=== PATIENT | male | born 1980 | race Two or more races ===

== ENCOUNTER 2016-12-06 11:46 | Emergency (ER) | payer OTHER ==
[~2016-12-06] VITALS: Ht 185.4 cm; Wt 83.5 kg
--- NOTE | 2016-12-06 12:40 | Emergency Room Report ---
History of Present Illness General Chief Complaint: Lower Extremity Injury Source: Patient Present Illness HPI 36-year-old male presents emergency department complaining of 6/10 in severity left medial knee pain that is localized x3 weeks. Patient states onset was immediately after a mechanical slip and fall. Patient reports previous history of MCL injury several years ago. Patient states pain is exacerbated upon extension of the leg. Patient has been wearing a knee brace as precaution. Patient denies instability of the joint. Patient denies swelling erythema, bruising. he states she has been taking naproxen regularly for the past 3 weeks with no relief. Patient states he does not currently have a PCP. Denies numbness tingling or loss of sensation or gross motor movements of the extremities, incontinence of bowel or bladder. Denies CP, Palpitations, LOC, AMS , dizziness, Changes in Vision, Sensation, paresthesias, or a sudden severe headache. Allergies: Coded Allergies: No Known Allergies (Unverified , 12/06/16) Patient History Past Medical History: see triage record Past Surgical History: none Pertinent Family History: none Immunizations: UTD Reviewed Nursing Documentation: PMH: Agreed, PSxH: Agreed Nursing Documentation-PMH Past Medical History: No Stated History Review of Systems All Other Systems: negative except mentioned in HPI Physical Exam Vital Signs Date Time Temp Pulse Resp B/P Pulse Ox O2 Delivery O2 Flow Rate FiO2 12/06/16 11:51 97.9 61 16 121/77 100 Room Air Sp02 EP Interpretation: reviewed, normal General Appearance: no apparent distress, alert, GCS 15, non-toxic Head: normocephalic, atraumatic Eyes: bilateral eye PERRL, bilateral eye normal inspection ENT: hearing grossly normal, normal pharynx, no angioedema, normal voice Neck: full range of motion, supple/symm/no masses Respiratory: lungs clear, normal breath sounds, speaking full sentences Cardiovascular #1: regular rate, rhythm, no edema Genitourinary: normal inspection, no CVA tenderness Musculoskeletal: back normal, gait/station normal, normal range of motion, other - pt has neoprene knee brace., tender - medial ttp to the left knee, no increased laxitiy, negative anterior and posterior drawer sign, pain with full extension, no obvious deformity. no swelling or bruising. Neurologic: alert, oriented x3, responsive, motor strength/tone normal, sensory intact, cerebellar normal, normal gait, speech normal Psychiatric: judgement/insight normal, memory normal, mood/affect normal Skin: normal color, no rash, warm/dry, well hydrated Medical Decision Making PA Attestation Dr. Rahman is my supervising Physician whom patient management has been discussed with. Diagnostic Impression: Primary Impression: Knee MCL sprain Qualified Codes: S83.411A - Sprain of medial collateral ligament of right knee , initial encounter Additional Impression: Left knee sprain Qualified Codes: S83.412A - Sprain of medial collateral ligament of left knee , initial encounter ER Course Pt. presents to the ED c/o Medial right knee pain x 3 weeks s/p slip and fall. pt reports pmhx of MCL sprain 2 years ago. pt. has been taking naproxen and icing daily with no relief. pt. also has been wearing soft knee brace. Ddx considered but are not limited to Fracture, dislocation, contusion, Sprain/ Strain/Spasm. Vital signs: are WNL, pt. is afebrile H&PE are most consistent with Right knee MCL sprain. ORDERS: - X-ray Right Knee 3 views - negative for fx, Dislocation, or significant soft tissue injury, per preliminary read in ED by Dr. Rahman ED INTERVENTIONS: - Tylenol PO - Pt is provided copies of the imaging that was performed at his visit today. - Pt . provided with list of free/ reduced cost clinics in this area. D/w pt. that MRI is warranted as his symptoms have not improved with conservative treatment. d/w pt. this type of imaging is performed as an outpatient. DISCHARGE: At this time pt. is stable for d/c to home. Will provide printed patient care instructions, and any necessary prescriptions. Care plan and follow up instructions have been discussed with the patient prior to discharge. Last Vital Signs Date Time Temp Pulse Resp B/P Pulse Ox O2 Delivery O2 Flow Rate FiO2 12/06/16 11:51 97.9 61 16 121/77 100 Room Air Disposition: HOME, SELF-CARE Condition: Stable Scripts Acetaminophen* (TYLENOL EXTRA STRENGTH*) 500 Mg Tablet 500 MG ORAL Q6H, #20 TAB 0 Refills Prov: Umu Capone 12/06/16 Patient Instructions: Knee Sprain Additional Instructions: Take medications as directed. Follow up with PCP in 3-5 days, may require MRI imaging as an outpatient. Return sooner to ED if new symptoms occur, or current symptoms become worse. - Please note that this Emergency Department Report was dictated using [employer] apprentice technology software, occasionally this can lead to erroneous entry secondary to interpretation by the dictation equipment. Umu Capone Dec 06, 2016 12:40
[2016-12-06] MEDS ORDERED: TYLENOL EXTRA500 MG ORAL (12:55)
[2016-12-06 13:29] VITALS: BP 126/84
--- NOTE | 2016-12-07 09:47 | Diagnostic Imaging Report ---
Indications: Left knee pain Technique: 3 views of the left knee Findings: Comparison: None No fracture, dislocation, lytic destruction, periosteal reaction, joint space widening or effusion, surrounding soft tissue abnormality, or other acute changes demonstrated. No deformity, alignment abnormality, arthritic change, soft tissue calcification, or other chronic changes demonstrated. IMPRESSION: Negative left knee series.
== END 2016-12-06 13:31 | disposition home or self-care (01) ==
LOC: EMR 12:59
DX: S83.412A Sprain of medial collateral ligament of left knee, initial encounter (principal); W01.0XXA Fall on same level from slipping, tripping and stumbling without subsequent striking against object, initial encounter; Y92.019 Unspecified place in single-family (private) house as the place of occurrence of the external cause
CPT/HCPCS: 99283